=== PATIENT | female | born 1945 | race Caucasian/White ===

== ENCOUNTER 2020-10-24 06:32 | Day surgery (SDC) | payer MEDICARE ==
[~2020-10-24] VITALS: Ht 165.1 cm; Wt 60.5 kg
[~2020-10-24 06:32] MED LIST: ESTRADIOL0.5 MG PO; FLAX SEED OIL1000 MG PO; FLONASE ALLERG9.9 ML NS; LEVOTHYROXINE75 MCG PO; LOVASTATIN40 MG PO; VITAMIN D-32000 UNIT PO
--- NOTE | 2020-10-24 07:59 | NUR ---
10/24/20 0759 Debra Flores 0754 PATIENT ARRIVES TO PACU, RESTING WITH EYES CLOSED. OPENS EYES WITH VERBAL STIMULI, ANSWERS QUESTIONS BUT SLOW TO RESPOND, BACK TO SLEEP WHEN NOT STIMULATED. RESP EVEN AND UNLABORED, ROOM AIR SATS >95%.
--- NOTE | 2020-10-24 09:49 | OR ---
[facility] [address] [place], [place] [address] Signed DATE OF OPERATION: 10/24/2020 SURGEON: Neisha Quintanilla MD PREOPERATIVE DIAGNOSES: 1. Proximal esophageal dysphagia. 2. Epigastric abdominal pain. 3. Cervical fusion. POSTOPERATIVE DIAGNOSES: 1. [id number] diffuse gastritis. 2. 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 PROCEDURE: EGD with CLOtest and biopsies of the antrum, fundus, and mid esophagus. ESTIMATED BLOOD LOSS: None. INDICATIONS: Merline is a 74-year-old female, who remains in very good health. She and her are quite active and had excellent functional status. She has noticed proximal esophageal dysphagia to dry foods and some of her larger pills. She said with a little water liquid, it seems to go down just fine. She underwent a swallowing study a few years ago and generally did well. She and her primary care provider wanted to perform an upper endoscopy to make sure everything was okay. In addition, she has had cervical fusion and has metal in her neck as well. She has also had a thyroid lobectomy. I met with Merline in the office and I gave her a pamphlet on upper endoscopy. We reviewed the nature of the test. She understands there is risk including, but not limited to gas bloating, crampy abdominal pain, bleeding, perforation requiring surgery, and missed diagnosis. We also discussed the need for IV conscious sedation. She had expressed understanding and wished to proceed. PROCEDURE NOTE: Merline was taken into our endoscopy suite and placed in the supine semi-recumbent position. The posterior oropharynx was anesthetized with lidocaine spray. A bite block was utilized for the case. She required 3 mg of Versed and 100 mcg of fentanyl to cover the case. The adult gastroscope was introduced and advanced all way out into the third portion of the duodenum under direct visualization of camera without difficulty. The duodenum and pyloric channel were unremarkable. The stomach showed [id number] Electronically Signed By: NEISHA QUINTANILLA MD 10/24/20 0949 PATIENT NAME: MERLINE SPARKS [facility] OPERATIVE REPORT DATE OF : 49 REPORT #: [id number] PHYSICIAN: NEISHA QUINTANILLA MD PCP: LEAH HOLDER PA-C REPORT IS CONFIDENTIAL AND NOT TO BE RELEASED WITHOUT AUTHORIZATION [facility] [address] [place] [id number] Signed erythematous changes throughout. She seemed to be a little worse in the fundus than it was in the antrum. We took biopsies out of the antrum and the fundus for pathologic review. An additional biopsy came out of the antrum for pathologic review. Upon retroflexion of the scope, there was no evidence of a hiatal hernia. The scope was withdrawn up through the area of the GE junction, which was compliant without stricture. The Z-line measures 38 cm from the incisors. Little or no disruption to the Z-line. However, she did have rings present in the esophagus concerning for possible felinization. Therefore, we took a biopsy of the midesophagus. However, no obvious erythematous changes concerning for reflux esophagitis. The scope was then withdrawn back into the posterior oropharynx. The vocal cords, arytenoids, and the epiglottis all appeared unremarkable. After this, the gas was suctioned out and the gastroscope removed. Merline tolerated the procedure quite well. RECOMMENDATIONS: I will see Merline back in my office in 7 to 14 days to review her results. Currently, we see no H2 merissa or proton-pump inhibitor listed in her medications. Neisha Quintanilla MD ALB/MODL /[id number] cc: MD Leah Alarcon PA-C Copies: NEISHA QUINTANILLA MD, CHLOE K PA-C ~ Electronically Signed By: NEISHA QUINTANILLA MD 10/24/20 0949 PATIENT NAME: MERLINE SPARKS [facility] OPER[facility] REPORT DATE OF : 49 REPORT #: [id number] PHYSICIAN: NEISHA QUINTANILLA MD PCP: LEAH HOLDER PA-C REPORT IS CONFIDENTIAL AND NOT TO BE RELEASED WITHOUT AUTHORIZATION
--- NOTE | 2020-10-24 10:09 | NUR ---
PT ALERT, ORIENTED AND SUPPORTED BY HER ANA MARIA. PT MENTIONED THAT SHE IS HAVING SOME TROUBLE SWALLOWING, AND HOPES THIS WILL GIVE SOME INSIGHT TO THE ISSUE. ALL QUESTIONS ASKED ANSWERED, PT REQUESTED PRAYER. WILL FOLLOW
--- NOTE | 2020-10-25 10:39 | PATH ---
[facility] [address] [place], [place] [address] Signed SPECIMEN(S): A ANTRUM/PYLORUS BIOPSY SPECIMEN(S): B FUNDUS BIOPSY SPECIMEN(S): C MIDDLE ESOPHAGEAL BIOPSY SPECIMEN SOURCE: A. ANTRUM/PYLORUS BIOPSY B. FUNDUS BIOPSY C. MIDDLE ESOPHAGEAL BIOPSY CLINICAL HISTORY: Dysphagia. Rule out gastritis. Esophagogastroduodenoscopy. MICROSCOPIC DESCRIPTION: Histologic sections of all submitted blocks are examined by light microscopy. These findings, together with the gross examination, support the pathologic diagnosis. FINAL PATHOLOGIC DIAGNOSIS: A. Stomach, antrum/pylorus, biopsy: - Antral mucosa with chronic, active gastritis. - Positive for Helicobacter organisms on HE stain. - Negative for dysplasia or malignancy. B. Stomach, fundus, biopsy: - Oxyntic mucosa with chronic, active gastritis. - Positive for Helicobacter organisms on HE stain. - Negative for dysplasia or malignancy. C. Esophagus, middle, biopsy: - Squamous mucosa with no histopathologic abnormality. - Negative for increased intraepithelial eosinophils. - Negative for intestinal metaplasia, dysplasia, or malignancy. NAL:cml:C2NR GROSS DESCRIPTION: Three specimens are received in three containers, labeled "PP." A. The specimen, labeled "PP, antrum biopsy," is received in formalin and consists of one matute soft tissue fragment that measures 0.2 cm in greatest dimension. The specimen is entirely submitted in cassette (A1). B. The specimen, labeled "PP, fundus biopsy," is received in formalin and consists of two matute soft tissue fragments that measure 0.2-0.3 cm in greatest dimension. The specimen is entirely submitted in cassette (B1). PATIENT NAME: IGLESIA SPARKS PATHOLOGY DATE OF : 49 REPORT #: [id number] PHYSICIAN: TOM PATHOLOGY PCP: BABAK HOLDER PA-C REPORT IS CONFIDENTIAL AND NOT TO BE RELEASED WITHOUT AUTHORIZATION [facility] [address] [place] [place] [address] Signed C. The specimen, labeled "PP, middle esophagus biopsy," is received in formalin and consists of one matute soft tissue fragment that measures 0.3 cm in greatest dimension. The specimen is entirely submitted in cassette (C1). JS (under the direct supervision of a pathologist) The Gross Description was prepared using a voice recognition system. The report was reviewed for accuracy; however, sound-alike word errors, addition and/or deletions may occur. If there is any question about this report, please contact Client Services. PERFORMING LABORATORY: The technical component was performed by [facility], [address] [place] [id number] (District Engineer: Angelica Hernandez MD; CLIA# [id number]). [facility], [address] [address] (CLIA# [id number]). Diagnostician: Rafaela Rock MD Pathologist Electronically Signed 10/25/2020 Copies: ~ PATIENT NAME: IGLESIA SPARKS JENNIFER PATHOLOGY DATE OF : 49 REPORT #: [id number] PHYSICIAN: TOM SOUTH PCP: BABAK HOLDER PA-C REPORT IS CONFIDENTIAL AND NOT TO BE RELEASED WITHOUT AUTHORIZATION
== END 2020-10-24 08:30 | disposition home or self-care (01) ==
LOC: OPS 06:32 → DS 06:32 → OPS 06:45 → DS 06:45 → OPS 08:30
PROVIDERS: ATTEND Colon & Rectal Surgery
PROC: 0DB78ZZ Excision of Stomach, Pylorus, Via Natural or Artificial Opening Endoscopic (ICD-10-PCS; principal; 2020-10-24 06:45)
DX: R13.19 Other dysphagia (principal); K29.50 Unspecified chronic gastritis without bleeding; E03.9 Hypothyroidism, unspecified; E78.5 Hyperlipidemia, unspecified; N18.9 Chronic kidney disease, unspecified; B96.81 Helicobacter pylori [H. pylori] as the cause of diseases classified elsewhere
CPT/HCPCS: 86677; 99153; G0500; J2250; J3010; J7121

== ENCOUNTER 2025-05-15 11:09 | Emergency (ER) | payer MEDICARE ==
[~2025-05-15] VITALS: Ht 165.1 cm; Wt 60.0 kg
[2025-05-15 11:29] LABS: BASOPHILS 0.1 % (0.1-1.2); EOSINOPHILS 1.5 % (0.7-5.8); LYMPHOCYTES 25.8 % (19.3-51.7); MCH 31.6 PG (25.6-32.2); MCHC 34.0 g/dL (32.2-35.5); MCV 93.1 fL (79.4-94.8); MONOCYTES 13.0 % (4.7-12.5); NEUTROPHILS 58.6 % (34.0-71.1); RBC 3.89 M/uL (3.93-5.22)
[2025-05-15] MEDS ORDERED: SODIUM CHLORIDE 0.9% 500 ML IV PRN (11:30)
[2025-05-15] MEDS ORDERED: CELECOXIB200 MG PO (11:32)
[2025-05-15] MEDS ORDERED: OMEPRAZOLE20 MG PO (11:33)
[2025-05-15 11:50] LABS: ALT (SGPT) 74.0 U/L (14-59); AST (SGOT) 62.0 U/L (15-37); GLOMERULAR FILTRATION RATE,EST 75.0 mL/min (>60); PROTEIN, TOTAL 6.7 g/dL (6.4-8.2); UREA NITROGEN 20.0 mg/dL (7-18)
[2025-05-15] MEDS ORDERED: ONDANSETRON ODT8 MG PO (13:36)
[2025-05-15 14:01] VITALS: BP 149/74
--- NOTE | 2025-05-17 21:52 | EKG ---
[facility] [address] [facility] [place] [address] Signed Sinus bradycardia Left axis deviation Left bundle branch block Abnormal ECG No previous ECGs available Confirmed by Danette Garsia MD () on 05/17/2025 9:52:33 PM Electronically Signed By: DANETTE GARSIA MD 05/17/252151 PATIENT NAME: IGLESIA SPARKS JENNIFER Electrocardiogram DATE OF : 49 PHYSICIAN: DANETTE GARSIA MD REPORT #: [id number] REPORT IS CONFIDENTIAL AND NOT TO BE RELEASED WITHOUT AUTHORIZATION
== END 2025-05-15 14:01 | disposition home or self-care (01) ==
LOC: ED 11:09
PROVIDERS: Emergency Medicine
DX: R55 Syncope and collapse (principal); Z79.51 Long term (current) use of inhaled steroids; Z79.899 Other long term (current) drug therapy; Z88.5 Allergy status to narcotic agent; Z88.8 Allergy status to other drugs, medicaments and biological substances
CPT/HCPCS: 36415; 80053; 83735; 84484; 85025; 93005; 93010; 96374; 99284-25; J2405; J7040